=== PATIENT | male | born 1940 | race Caucasian/White ===

== ENCOUNTER 2016-11-21 00:55 | Day surgery (SDC) | payer MEDICARE ==
[2016-11-21] VITALS (15 sets, daily range): BP systolic 109–129; BP diastolic 53–69; PULSE 60–71; RESP 12–20; O2SAT 92–98
[~2016-11-21] VITALS: Ht 184.2 cm; Wt 103.0 kg
[~2016-11-21 00:55] MED LIST: ASPI-973 PO; DABI150C PO; FUR20 PO; LIP40 PO; LOSA25TA21 PO; METO25TA99 PO; NITR0.4T SL; POTA10TA38 PO; SOTA80TA PO; UBID100C25 PO
[2016-11-21] MEDS ORDERED: Protamine Sulfate 10 mg/mL 5 mL Inj ONE ×2 (00:56→15:13)
[2016-11-21] MEDS ORDERED: Ondansetron 2 mg/mL 2 mL Inj ONE (00:56)
[2016-11-21] MEDS ORDERED: Propofol 10,000 mCg/mL 20 mL Inj ONE (00:56)
[2016-11-21] MEDS ORDERED: Rocuronium 10 mg/mL 5 mL Inj ONE (00:56)
[2016-11-21] MEDS ORDERED: fentaNYL-PF 50 mCg/mL 2 mL Inj ONE (00:56)
[2016-11-21] MEDS ORDERED: Dexamethasone 4 mg/mL Inj ONE (00:56)
[2016-11-21] MEDS ORDERED: Lactated Ringer's 1,000 ML IV SCH (05:00)
[2016-11-21] MEDS ORDERED: Benzoc-Butamben-Tetraca Spray 20 Gm Spray TOPICAL PRN (08:05)
[2016-11-21] MEDS ORDERED: DOXY100C2 PO (09:56)
[2016-11-21] MEDS ORDERED: Vancomycin 1,000 mg/200 mL D5W IV ONE (10:29)
[2016-11-21] MEDS ORDERED: Heparin 1,000 Units/500 mL NS Premix IV ONE (10:36)
[2016-11-21] MEDS ORDERED: Heparin 25,000 Unit/500 mL 0.45% NS Premix IV ONE (10:37)
[2016-11-21] MEDS ORDERED: Heparin 5,000 Units/500 mL NS Premix IV ONE (10:37)
[2016-11-21] MEDS ORDERED: Heparin 1,000 Unit/mL 10 mL Inj ONE (10:37)
[2016-11-21] MEDS ORDERED: 0.9% Sodium Chloride 1,000 ML ONE (10:37)
[2016-11-21 10:39] LABS: BASOPHILS % (AUTO) 1.3 % (0-3); EOSINOPHILS % (AUTO) 10.5 % (0-5); MONOCYTES % (AUTO) 11.6 % (4-12); Mean Corpuscular Hemoglobin 31.4 pg (27.0-35.0); Mean Corpuscular Volume 93.8 fL (81-100); NEUTROPHILS % (AUTO) 54.1 % (40-74); Platelet Count 188 bil/L (150-400)
[2016-11-21] MEDS ORDERED: 0.9% Sodium Chloride 3,000 ML ONE (10:41)
[2016-11-21 10:54] LABS: INR 1.03 ratio
[2016-11-21] MEDS ORDERED: Ondansetron 2 mg/mL 2 mL Inj IVPUSH PRN (15:35)
[2016-11-21] MEDS ORDERED: HYDROcodone-APAP 5-325 mg Tablet PO PRN (15:35)
--- NOTE | 2016-11-21 16:00 | PCM.HPANE ---
Patient Data Date of Service: Nov 21, 2016 (1200) Surgeon Admitting Provider: Attending Provider:Liu Devlin MD Primary Care Physician:Sadie Goodman MD Other Provider:Maura Whiting Anesthesia Reason for Visit Paroxysmal Atrial Fibrillation Ht/WT & BMI Height (Feet): 6 Height (Inches): 0.50 Weight (Kilograms): 103.000 Body Mass Index 30.42 Allergies Coded Allergies: Penicillins (Verified Allergy, Unknown, 04/09/16) Past Anesthesia History Anesthesia History: Denies:: Anesthesia Reactions Diabetes History Hx Diabetes?: No MRSA MRSA: Yes (recent athletes foot with MRSA) Medications Reported Medications Doxycycline Hyclate 100 Mg Nzkjjqx016 Mg PO BID 11/21/16 Sotalol HCl (Sotalol)80 Mg Thtojv355 Mg PO BID 30 Days Ref 0 11/20/16 Potassium Chloride 10 Meq Tab.er.prt10 Meq PO DAILY 30 Days Ref 0 TAKE WITH FOOD 11/20/16 Furosemide 20 Mg Tab20 Mg PO DAILY 30 Days Ref 0 11/20/16 Nitroglycerin SL (Nitrostat)0.4 Mg Tab.subl0.4 Mg SL Q5MIN PRN For Chest Pain # 1 BOTTLE 08/07/16 Ubidecarenone (Co Q-10)100 Mg Ybwjgmi861 Mg PO BID 04/09/16 Metoprolol Succinate ER 25 Mg Tab.er.24h25 Mg PO DAILY Ref 0 04/09/16 Losartan Potassium 25 Mg Mfytrh92 Mg PO evening 01/19/16 Atorvastatin (Lipitor)40 Mg Auxdgj35 Mg PO HS Ref 0 01/19/16 Dabigatran Etexilate Mesylate (Pradaxa)150 Mg Awwujmz027 Mg PO BID 30 Days 01/18/16 Aspirin 81 Mg Ctphzi84 Mg PO evening Ref 0 01/18/16 Discontinued Reported Medications [[place] 3] No Conflict Check2 Tab PO BID 08/07/16 Duloxetine 60 Mg Capsule.dr90 Mg PO DAILY Ref 0 not taking currently 08/07/16 Discontinued Scripts Sotalol (Betapace)80 Mg Wvrzfl06 Mg PO BID #180 TAB Ref 3 Prov:Jose D Mayberry PA-C 04/11/16 History History of ENT Problems?: No HEENT History: Positive for:: Cataracts (forming) Denies:: Dysphagia Sinus Problem Hx of Heart Problems?: Yes Cardiovascular History: Positive for:: Cardiac Surgery (1999 stent to LAD X 2/ Ablation X2 2011/PM 2016) Edema (trace ankle) Heart Murmur Hypertension Irregular Heartbeat (A fib/flutter) Thrombophlebitis (to R leg; DVT) Denies:: Chest Pain Congestive Heart Failure Pacemaker Hx of Respiratory Problem?: Yes Respiratory History: Positive for:: Chest Surgery (PM, stent x2) Dyspnea (with exertion) Pneumonia 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) Denies:: Asthma COPD Emphysema Hemoptysis Hx Neurologic Problems?: No Neurological History: Denies:: Alzheimer's Disease CVA Dementia Dizziness Headaches Parkinson's Disease Seizures Hx of GI Problems?: Yes Gastrointestinal History: Positive for:: Diverticulitis (2014) Hiatal Hernia (post repair) Denies:: Gastroesphageal Reflux Gastrointestinal Bleeding Heartburn Hepatitis Rectal Bleeding Hx of Problems?: No Genitourinary History: Denies:: HX of Hemodialysis Kidney Stones Urinary Tract Infection HX of Peritoneal Dialysis: No Male Hx: Denies:: Prostate Problems Scrotal Mass Testicular Surgery Hx Musculoskeletal Problems?: Yes Musculoskeletal History: Positive for:: Back Injury (spinal stenosis) Denies:: Joint Replacement Musculoskeletal Trauma Hx of Psycho/Social Problems?: No Hx Surgeries?: Yes (R IHR; R knee arthrosc; L shoulder arthros.; T&A) Hx Any Other Health Problems?: No Other History: Positive for:: Cancer (skin cancer) Hospitalization Denies:: Thyroid Disease History Blood Transfusions: Positive for:: Accept Blood Products? Denies:: Blood Transfuse Reaction Blood Transfusions Hx Diabetes: No Hx Alcohol Use: Yes ("five times a week" "A glass of wine")Hx Substance Use: No Smoking Status: Former Smoker Have You Smoked inLast 12 mo: No (SMOKED cigarettes and a pipe QUIT IN 1967) Stop/Bang TELLO Risk Assessment: Low Risk, <3 Yes Risk Assessment Category Category 1A: Patient has history of documented sleep apnea, and HAS NOT received any narcotic, sedative or anesthesia administration during this stay. Category 1B: Patient has history of documented sleep apnea, and HAS received any narcotic , sedative or anesthesia administration during this stay Category 2: Patient has SUSPECTED Obstructive Sleep Apnea, and HAS received any narcotic , sedative or anesthesia administration during this stay. Category 3: Patient has SUSPECTED Obstructive Sleep Apnea and HAS NOT received narcotic, sedative or anesthesia administration during this stay. Category 4: Outpatient in Procedural Areas with known sleep apnea or who screen positive for High Risk via the STOP/BANG questionnaire. Exam Exam Vital Signs Vital Signs Date Time Temp Pulse Resp B/P Pulse Ox O2 Delivery O2 Flow Rate FiO2 11/21/16 09:32 36.5 60 14 129/69 97 Room Air 11/21/16 09:32 63 15 129/69 General Appearance: Alert, Oriented X3, Cooperative HEENT/AIRWAY: MP 1 Lungs: Clear to Auscultation Heart: Exam Unremarkable, Regular Rate/Rhythm Meds/Labs/Diagnostics Labs Test 11/21/16 10:34 White Blood Count 6.3th/mm3 (3.8-10.1) Red Blood Count 4.39mil/mm3 (4.40-5.80) Hemoglobin 13.8g/dL (13.8-17.2) Hematocrit 41.2% (41.0-50.0) Mean Corpuscular Volume 93.8fL (81-100) Mean Corpuscular Hemoglobin 31.4pg (27.0-35.0) Mean Corpuscular Hemoglobin Concent 33.5% (32.0-37.0) Red Cell Distribution Width 13.9% (12.3-15.4) Platelet Count 188bil/L (150-400) Neutrophils (%) (Auto) 54.1% (40-74) Lymphocytes (%) (Auto) 22.2% (14-46) Monocytes (%) (Auto) 11.6% (4-12) Eosinophils (%) (Auto) 10.5% (0-5) Basophils (%) (Auto) 1.3% (0-3) Prothrombin Time 11.0sec (8.1-12.5) Prothromb Time International Ratio 1.03ratio Sodium Level 139mEq/L (134-144) Potassium Level 4.5mEq/L (3.5-5.2) Chloride Level 101mEq/L (97-108) Carbon Dioxide Level 25mmol/L (18-29) Blood Urea Nitrogen 18mg/dL (8-27) Creatinine 1.00mg/dL (0.76-1.27) Estimat Glomerular Filtration Rate 77mL/min (>59) Glucose Level 105mg/dL (60-99) Calcium Level 8.8mg/dL (8.5-10.1) Plan Impression Patient chart reviewed, patient interviewed and anesthestic plan with risks, benefits, and alternatives discussed, and informed consent obtained. NPO Status: >8hr ASA Physical Status: ASA2 Mod Systemic Disease Anesthetic Support Modalities: Arterial Line Anesthetic Plan: GA Bene/Risks/Altern/Consents: Yes HP Complete Prior to Induction: Yes Anson Caicedo MD Nov 21, 2016 16:00
--- NOTE | 2016-11-21 16:01 | PCM.ANEP2 ---
Post Anesthesia Evaluation ASA/CMS Post Anesthesia VS in Patient's Normal Range?: Yes Resp Stable; Airway Patent?: Yes CV Function & Hydration Stable: Yes Mental Status Recovered?: Yes Pain control Satisfactory?: Yes N/V Control Satisfactory?: Yes Anson Caicedo MD Nov 21, 2016 16:01
--- NOTE | 2016-11-21 16:01 | PCM.ANEP1 ---
Post Anesthesia Phase 1 PACU Phase 1 Assessment Date of Service: Nov 21, 2016 (1200) Vital Signs 110/56, 63,16, 36.2, 94% Vital Signs Date Time Temp Pulse Resp B/P Pulse Ox O2 Delivery O2 Flow Rate FiO2 11/21/16 09:32 36.5 60 14 129/69 97 Room Air 11/21/16 09:32 63 15 129/69 Anesthetic Administered: GA Level of Alertness: Awake, talking SWANSON's with Equal Strength: Yes Pain: No Nausea or Vomiting: No Oxygen Delivery: Room Air Lungs: Clear to Auscultation Dermatome Level: Full Sensation Summary uneventful LAURIE GIPSON Trevor J MD Nov 21, 2016 16:01
--- NOTE | 2016-11-21 16:40 | DRSVH ---
[facility] [address] [place] [address] Echocardiogram Report Name: BASIL LESTER Study Date: 11/21/2016 Hospital Exam Location: [facility] Gender: Male : 1940 Age: 76 yrs Reason For Study: Atrial fibrillation Ordering Physician: Liu Devlin Performed By: Melissa Gonsales Interpretation Summary BARBARA done prior to AF ablation: 1) No thrombus is detected in the left atrial appendage. 2) Mild atherosclerotic plaque(s) in the descending aorta. 3) Grossly normal left ventricular size and function. 4) No gross valvular abnormalities noted. Procedure: Informed consent for Transesophageal Echocardiogram, and use of a contrast agent as needed, was obtained prior to the procedure. The patient was brought to the cardiac catheterization lab in a fasting state. Sedation was managed by anesthesiologist; see anesthesiology notes for details. A multifrequency, multiplane transesopheageal echocardiographic endoscope was inserted and manipulated in the standard fashion to achieve multiplane views. The transesophageal probe was passed relatively easily. Left Ventricle: The left ventricle is grossly normal size. The left ventricular ejection fraction is grossly normal. Atria: No thrombus is detected in the left atrial appendage. No thrombus appreciated in the right atrial appendage. Mitral Valve: There is mild mitral regurgitation. Aortic Valve: The aortic valve is trileaflet. Great Vessels: Mild atherosclerotic plaque(s) in the descending aorta. Reading Physician:04:39 PM
--- NOTE | 2016-11-21 16:49 | PROCED ---
[address] [address] PROCEDURE NOTE PATIENT: BASIL LESTER : 1940 MR#: [id number] ADMIT: 11/21/2016 JOB ID: [id number] DATE OF SERVICE: 11/21/2016 PREOPERATIVE DIAGNOSIS(ES): 1. Paroxysmal drug refractory symptomatic atrial fibrillation. 2. Sick sinus syndrome with complete heart block and a dual-chamber pacemaker in place. POSTOPERATIVE DIAGNOSIS(ES): 1. Paroxysmal drug refractory symptomatic atrial fibrillation. 2. Sick sinus syndrome with complete heart block and a dual-chamber pacemaker in place. PROCEDURES PERFORMED: 1. Comprehensive electrophysiology study with left atrial pacing recording. 2. Intracardiac echocardiography. 3. Three-dimensional electroanatomic mapping using the CARTO 3 system. 4. Atrial fibrillation ablation with pulmonary vein isolation. 5. Transseptal puncture x2. 6. Barium esophagram. 7. Periprocedural pacemaker programming and reprogramming. 8. Fluoroscopy. SURGEON: Battery Engineer: Liu Devlin MD, electrophysiology attending. OIL PUMPER: Rosas Daley John Matista, PA-C. ANESTHESIA: General endotracheal anesthesia was undertaken for this case. INDICATION: The patient is a pleasant 76-year-old man with preserved LV function, complete heart block, dual-chamber pacemaker in place, symptomatic paroxysmal atrial fibrillation refractory to sotalol therapy, with previous atrial fibrillation and flutter ablation. After discussion of the risks and benefits of catheter based mapping and ablation, he opted to proceed. PROCEDURAL DESCRIPTION: Following informed signed consent, the patient was taken to the EP laboratory in a fasting state where he was prepped and draped in the usual sterile fashion. He underwent a preprocedural transesophageal echocardiogram by Dr. Samayoa confirming lack of intracardiac thrombus. Please see separate dictated report for the details of that procedure. The bilateral groins were then infiltrated with 1% lidocaine; then, using modified Seldinger technique, two 8-Ukrainian sheaths were inserted through the right femoral vein and 7- and 10.5-Ukrainian sheaths were inserted through the left femoral vein. Under fluoroscopic guidance, a deflectable decapolar catheter was advanced into the coronary sinus with the most proximal bipoles at the os of the sinus. An intracardiac echocardiography probe was advanced to the RV outflow tract and used to visualize the pericardial space. No effusion was noted. The ICE probe was pulled back into the right atrium and used to visualize the interatrial septum in assistance of transseptal puncture. Two transseptal punctures were performed in an identical fashion. Each of the short 8-Ukrainian sheaths was exchanged over a long wire for a Tidwell sheath dilator and [employer] [place] needle. The entire system was used to engage the interatrial septum; then, under ICE, fluoroscopic, and pressure guidance, the septum was traversed twice to deploy the two Tidwell sheaths into the left atrium. The patient was heparinized for a goal ACT of 350-400 seconds for the entire time we were in the left atrium. Following the first and preceding the second transseptal puncture, a resurvey of the pericardial space showed no evidence of effusion. Through the two Tidwell sheaths an F-curved Smart Touch irrigated ablation catheter was passed as well as a 20-pole PentaRay catheter. A three-dimensional electroanatomic map of the left atrium and pulmonary veins was created using the WhipCar 3 system. The patient has a common left pulmonary trunk and two separate ostia for the right pulmonary veins. Each of the pulmonary veins was re-isolated. They had all reconnected electrically. Circumferential ablation lesions were placed around the ostia of the left common, right upper, and right lower pulmonary veins, in that order, achieving entrance and exit block. I then disengaged from the left atrium, stopped the heparin, and re-surveyed the pericardial space confirming lack of effusion, and reversed heparin with protamine. During the course of this study we did complete a comprehensive electrophysiology study with right atrial pacing recording, right ventricular pacing recording, His bundle recording, and left atrial pacing recording via the coronary sinus catheter. We did test the cavotricuspid isthmus line and found it to be intact with both medial to lateral and lateral to medial block with a transisthmus time of 217 msec in both directions. The patient's pacemaker was interrogated pre- and postprocedurally and showed excellent lead parameters, impedances, sensing, and threshold. He has intact VA conduction but no AV conduction. He was reprogrammed back to DDDR at the end of the case. Once the patient's heparin was reversed, all catheters and sheaths were removed. Manual pressure was held for hemostasis. The patient was taken to the [facility] for monitoring and bedrest. COMPLICATIONS: None. ESTIMATED BLOOD LOSS: 50-20 cc. FINDINGS: 1. Baseline rhythm is an AV paced rhythm with an RR interval of 99 msec, MN 164 msec, QRS 165 msec, QT 465 msec. 2. Retrograde conduction: VA Wenckebach is seen at 590 msec with concentric atrial activation. 3. Antegrade conduction: No AV conduction was seen. 4. Pulmonary vein isolation as described above with entrance and exit block in all four pulmonary veins. 5. Cavotricuspid isthmus line is confirmed to be blocked in both directions with a transisthmus time of 217 msec in both directions. IMPRESSION: Successful pulmonary vein isolation procedure for paroxysmal drug refractory atrial fibrillation. PLAN: 1. Bedrest x4 hours. 2. Continue anticoagulation with Pradaxa. 3. Continue sotalol. 4. Protonix 40 mg p.o. daily for one month. 5. Anticipate discharge tomorrow. 6. Follow up with Jose D Mayberry PA-C, in four weeks and with me in three months. ATTENDING STATEMENT: Liu Devlin MD, electrophysiology attending, was present for and supervised/performed all aspects of this procedure.
[2016-11-21] MEDS ORDERED: Dabigatran 150 mg Capsule PO ONE (17:20)
--- NOTE | 2016-11-21 19:10 | NUR ---
PEPE Patient return from label stamper Afib ablation at 1600. at bedside. Patient denies pain. Bilateral groin venous puncture without bleeding or hematoma. Pedal pulses present. Taking PO. Ruby in place. Transferred to room 2022 by bed at 1830. report to receiving RN.
--- NOTE | 2016-11-21 19:27 | NUR ---
Pt arrival pt arrived to room 2022 at about 1849. Bedside report given to oncoming RN Adilene by [facility] RN and Lina CANTU RN.
--- NOTE | 2016-11-22 00:45 | NUR ---
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 Pt remained on bedrest till 1999. Allen was removed @ 1999. Pt independent in room after bedrest and allen removed. Pt A-Fib, paced. RA, SL, no pain, bilateral groin sites non-tender, dressing CDI. No other issues noted at this time.
[2016-11-22 01:24] VITALS: BP 116/57; PULSE 60; RESP 18; O2SAT 96
[2016-11-22 04:27] VITALS: BP 122/60; PULSE 70; RESP 20; O2SAT 96
[2016-11-22] MEDS ORDERED: Pantoprazole 40 mg ER24 Tablet PO SCH (06:30)
[2016-11-22 06:41] VITALS: PULSE 60
[2016-11-22 08:00] VITALS: PULSE 60
[2016-11-22] MEDS ORDERED: Dabigatran 150 mg Capsule PO SCH (08:30)
[2016-11-22] MEDS ORDERED: MeTOProlol XL 25 mg ER24 Tablet PO SCH (08:30)
[2016-11-22 08:40] VITALS: BP 133/70; PULSE 62; RESP 16; O2SAT 97
--- NOTE | 2016-11-22 09:07 | PCM.DIMED ---
Discharge Instructions Date of Service Nov 22, 2016 Dates of Hospitalization Discharge Diagnosis Discharge Diagnosis Paroxysmal Atrial Fibrillation Sick Sinus Syndrome - Sinus Bradycardia 2nd Degree AV Block Coronary Artery Disease Hypertension Diet Heart Healthy Activity Other (To prevent bleeding, do not lift more than 10 lbs for 1 week. To prevent infection, do not sit in a bath tub, hot tub or pool for one week.) Call your provider Fever or Chills, Bleeding, Chest pain, Excessive diarrhea, Weakness (unilateral) Patient Instructions Mid-level Provider (F9): Jose D Mayberry PA-C Follow-up with Mid-level in: 3 weeks (Appt. at [facility] in [place] on Dec 13 at 2:25 (arrival time).) Jose D Mayberry PA-C Nov 22, 2016 09:07
[2016-11-22] MEDS ORDERED: PANT40TA3 PO (09:24)
--- NOTE | 2016-11-22 10:45 | DIS ---
[address] [address] DISCHARGE SUMMARY PATIENT: BASIL LESTER : 1940 MR#: [id number] ADMIT: 11/21/2016 JOB ID: [id number] DIS: REASON FOR ADMISSION: Atrial fibrillation ablation procedure. CHIEF COMPLAINT: Marked dyspnea and fatigue, and atrial fibrillation. HISTORY: The patient is a pleasant 76-year-old man with preserved biventricular function, known coronary artery disease, complete heart block and sick sinus syndrome with sinus bradycardia who has a dual-chamber pacemaker in place. He has had previous ablations for both atrial flutter and atrial fibrillation in the year 2009, but has continued to have symptomatic and drug refractory paroxysmal atrial fibrillation. He is currently taking sotalol 120 mg b.i.d., but has breakthrough atrial fibrillation. Ablation technology has improved significantly since 2009, and so, he will have a second atrial fib ablation procedure with hopes of preventing the atrial fibrillation in the future. COURSE IN HOSPITAL: The patient was admitted through the [facility] and taken to the catheterization laboratory, where he was put under general anesthesia by the anesthesiologist. He then underwent transesophageal echocardiography, which showed no left atrial thrombus. The ablation procedure was then undertaken and all four pulmonary vein antra were successfully isolated from the left atrium. Also, the right atrial cavotricuspid isthmus ablation line was confirmed to have bidirectional block from the previous flutter procedure. The procedure was ended without incident and the patient was awakened from anesthesia. Hemostasis was obtained after the right and left femoral venous sheaths were removed. He was then transferred back to the [facility] for further recovery from anesthesia and then taken up to the [facility] for overnight observation where he did well. In the evening the Ruby catheter was removed, and he was able to void spontaneously. He had no significant bleeding from the venous access sites. In the morning the patient felt well for discharge home. He had no complaints of dyspnea or fatigue. Cardiac telemetry showed that there had been some intermittent periods of atrial fibrillation during the night but this is not unexpected following the ablation procedure. DISPOSITION: The patient was discharged home in good condition with a followup appointment at the [facility] Cardiology office in three weeks. To prevent bleeding he was asked not to lift more than 10 pounds for one week, and to bring to prevent infection he was asked not to sit in a hot tub, bathtub, or pool for one week. He will take medications as prescribed and follow his heart healthy diet. DISCHARGE MEDICATIONS: 1. Pantoprazole 40 mg p.o. once daily for 1 month. 2. Aspirin 81 mg daily. 3. Atorvastatin 40 mg q.h.s. 4. Pradaxa 150 mg b.i.d. 5. Doxycycline 100 mg b.i.d. 6. Furosemide 20 mg daily. 7. Losartan 25 mg q.h.s. 8. Metoprolol succinate 25 mg q.h.s. 9. Nitroglycerin sublingual tablets 0.4 mg p.r.n. chest pain. 10. Potassium 20 mEq daily. 11. Sotalol 120 mg b.i.d. 12. CoQ10, 100 mg b.i.d. FINAL DIAGNOSES: 1. Paroxysmal atrial fibrillation. 2. Sick sinus syndrome with sinus bradycardia. 3. Second-degree atrioventricular block. 4. Dual-chamber cardiac pacemaker in place. 5. Coronary artery disease. 6. Hypertension.
--- NOTE | 2016-11-22 11:51 | NUR ---
Discharged Pt-Reviewed discharge instruction with Pt and . Pt verbalized understanding. Pt discharged via wheelchair with instructions to parts picker prescriptions at pharmacy and instructions. IV and telemetry previously discontinued. Pt left hospital with to home self. Pt has been instructed as to when followup appointment is and post surgery restrictions.
== END 2016-11-22 11:40 | disposition home or self-care (01) ==
LOC: SOUO 00:55 → PCC 18:37 → SOUO 11-22 11:40
PROVIDERS: ATTEND Internal Medicine Cardiovascular Disease
DX: I48.0 Paroxysmal atrial fibrillation (principal); I49.5 Sick sinus syndrome; I44.2 Atrioventricular block, complete; Z95.0 Presence of cardiac pacemaker; Z98.890 Other specified postprocedural states; I25.10 Atherosclerotic heart disease of native coronary artery without angina pectoris; I10 Essential (primary) hypertension; I08.0 Rheumatic disorders of both mitral and aortic valves; E78.5 Hyperlipidemia, unspecified; I45.10 Unspecified right bundle-branch block; Z79.01 Long term (current) use of anticoagulants; Z79.82 Long term (current) use of aspirin; Z79.899 Other long term (current) drug therapy
CPT/HCPCS: 36415; 80048; 85025; 85610; 93005; 93613; 93656; 93662; C1730; C1732; C1759; C1894; C8925; J1100; J1644; J2405; J2720; J3010; J7030; J7040